=== PATIENT | male | born 1975 | race Caucasian/White ===

== ENCOUNTER 2017-01-13 14:43 | Emergency (ER) | payer SELFPAY ==
[~2017-01-13] VITALS: Ht 170.2 cm; Wt 78.3 kg
[~2017-01-13 14:43] MED LIST: GABA400 PO; IBUP-232 PO; METH750T2 PO; SERO200T PO; VIST50CA PO; ZOLO50TA PO
[2017-01-13 15:00] VITALS: BP 99/65; PULSE 92; RESP 18; TEMP 98; O2SAT 96
--- NOTE | 2017-01-13 15:05 | PD ---
HPI Chief Complaint: chest discomfort Time Seen by Provider: 15:02 Travel History International Travel<30 days: No Contact w/Intl Traveler<30days: No History of Present Illness HPI Patient presents with complaints of chest pain. States that intermittently over the last several years he experiences chest pain. Previously thought it might be associated with anxiety. 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 Mention to his employer today that he was having some chest discomfort and his employer recommended he be evaluated. Located midsternal and more of a dull ache then pressure. Positive tobacco use. Denies radiation or diaphoresis. Nondiabetic. No family history cardiac disease. No personal history of cardiac disease. Previously worked out regularly however he doesn't have time these days. PFSH Past Medical History Arthritis: Yes Anxiety: Yes Depression: Yes Heart Rhythm Problems: No Cancer: No Cardiovascular Problems: No High Cholesterol: No Chest Pain: No Congestive Heart Failure: No Cerebrovascular Accident: No Diabetes: No Diminished Hearing: No Endocrine: No Gastrointestinal Disorders: Yes GERD: No Genitourinary: No Hiatal Hernia: Yes Immune Disorder: No Musculoskeletal: Yes Neurologic: Yes Psychiatric: Yes Reproductive: No Respiratory: No Migraines: No Seizures: Yes (IN 2007) Ulcer: No Past Surgical History Abdominal Surgery: No Cardiac Surgery: No Ear Surgery: No Endocrine Surgery: No Eye Surgery: No Genitourinary Surgery: No Oral Surgery: No Thoracic Surgery: No Other Surgery: Yes Social History Alcohol Use: Yes Tobacco Use: Yes Substance Use: Yes Allergies-Medications (Allergen,Severity, Reaction): Coded Allergies: No Known Allergies (Verified , 04/15/13) Reported Meds & Prescriptions Reported Meds & Active Scripts Active No Active Prescriptions or Reported Medications Review of Systems Cardiovascular: Positive: Chest Pain or Discomfort Physical Exam Narrative GENERAL: Well-nourished, well-developed patient. SKIN: Focused skin assessment warm/dry. HEAD: Normocephalic. EYES: No scleral icterus. No injection or drainage. NECK: Supple, trachea midline. No JVD or lymphadenopathy. CARDIOVASCULAR: Regular rate and rhythm without murmurs, gallops, or rubs. RESPIRATORY: Breath sounds equal bilaterally. No accessory muscle use. GASTROINTESTINAL: Abdomen soft, non-tender, nondistended. MUSCULOSKELETAL: No cyanosis, or edema. BACK: Nontender without obvious deformity. No CVA tenderness. Data Data Last Documented VS Vital Signs Date Time Temp Pulse Resp B/P (MAP) Pulse Ox O2 Delivery O2 Flow Rate FiO2 01/13/17 15:34 98/52 (67) 97/59 (72) 01/13/17 15:31 18 98 Room Air 01/13/17 15:00 98.0 92 Orders Orders Ckmb (Isoenzyme) Profile (01/13/17 15:02) Complete Blood Count With Diff (01/13/17 15:) Comprehensive Metabolic Panel (01/13/17:) Magnesium (Mg) (01/13/17 15:) Prothrombin Time / Inr (Pt) (01/13/17:) Act Partial Throm Time (Ptt) (01/13/17:) Troponin I (01/13/17:) Chest, Single Ap (01/13/17 15:) Ecg Monitoring (01/13/17:) Bilateral Bp Monitoring (01/13/17:) Iv Access Insert/Monitor (01/13/17:) Oximetry (01/13/17 15:) Oxygen Administration (01/13/17 15:02) Aspirin (Aspirin) (01/13/17:15) Sodium Chloride 0.9% Flush (Ns Flush) (01/13/17 15:15) Labs Laboratory Tests Test 01/13/17 15:14 White Blood Count 6.9 TH/MM3 Red Blood Count 4.73 MIL/MM3 Hemoglobin 14.9 GM/DL Hematocrit 44.1 % Mean Corpuscular Volume 93.2 FL Mean Corpuscular Hemoglobin 31.6 PG Mean Corpuscular Hemoglobin Concent 33.9 % Red Cell Distribution Width 12.8 % Platelet Count 279 TH/MM3 Mean Platelet Volume 7.0 FL Neutrophils (%) (Auto) 53.5 % Lymphocytes (%) (Auto) 31.7 % Monocytes (%) (Auto) 10.3 % Eosinophils (%) (Auto) 2.0 % Basophils (%) (Auto) 2.5 % Neutrophils # (Auto) 3.7 TH/MM3 Lymphocytes # (Auto) 2.2 TH/MM3 Monocytes # (Auto) 0.7 TH/MM3 Eosinophils # (Auto) 0.1 TH/MM3 Basophils # (Auto) 0.2 TH/MM3 CBC Comment DIFF FINAL Differential Comment Prothrombin Time 10.6 SEC Prothromb Time International Ratio 1.0 RATIO Activated Partial Thromboplast Time 25.5 SEC Blood Urea Nitrogen 12 MG/DL Creatinine 0.90 MG/DL Random Glucose 94 MG/DL Total Protein 7.5 GM/DL Albumin 3.9 GM/DL Calcium Level 8.4 MG/DL Magnesium Level 2.3 MG/DL Alkaline Phosphatase 73 U/L Aspartate Amino Transf (AST/SGOT) 12 U/L Alanine Aminotransferase (ALT/SGPT) 21 U/L Total Bilirubin 0.4 MG/DL Sodium Level 139 MEQ/L Potassium Level 3.6 MEQ/L Chloride Level 103 MEQ/L Carbon Dioxide Level 28.3 MEQ/L Anion Gap 8 MEQ/L Estimat Glomerular Filtration Rate 93 ML/MIN Total Creatine Kinase 68 U/L Troponin I LESS THAN 0.02 NG/ML MDM Medical Decision Making Medical Screen Exam Complete: Yes Emergency Medical Condition: Yes Differential Diagnosis Acute coronary syndrome, anxiety, pleurisy, GERD Narrative Course Assessment and plan discussed with patient at bedside. EKG reveals sinus rhythm rate of 93. Cardiac enzymes negative. Chest x-ray shows no acute cardiopulmonary process Diagnosis Primary Impression: Chest discomfort Patient Instructions: General Instructions Additional Instructions: Encouraged regular exercise and avoidance of stressors. Encouraged smoking cessation. Follow-up with PCP. Return to emergency room with any onset of new symptoms. Please provide note to clear for work. Med/Other Pt SpecificInfo: No Meds Exist/No RX given Scripts No Active Prescriptions or Reported Meds Disposition: 01 DISCHARGE HOME Condition: Good Corey Doshi MD Jan 13, 2017 15:05
[2017-01-13] MEDS ORDERED: ASPIRIN 325 MG TAB PO ONE (15:15)
[2017-01-13] MEDS ORDERED: SODIUM CHLORIDE 0.9% FLUSH 10 ML FLUSH IVF PRN (15:15)
[2017-01-13 15:28] LABS: AUTOMATED NEUTROPHIL # 3.7 TH/MM3 (1.8-7.7); BASOPHIL # 0.2 TH/MM3 (0-0.2); BASOPHIL % 2.5 % (0.0-2.0); EOSINOPHIL # 0.1 TH/MM3 (0-0.4); HEMATOCRIT 44.1 % (39.0-51.0); HEMO FLAGS DIFF FINAL; LYMPH % 31.7 % (9.0-44.0); LYMPHOCYTE # 2.2 TH/MM3 (1.0-4.8); MEAN CELL VOLUME 93.2 FL (80.0-100.0); MEAN CORPUSCULAR HEMOGLOBIN 31.6 PG (27.0-34.0); MEAN CORPUSCULAR HGB CONC 33.9 % (32.0-36.0); MONO % 10.3 % (0.0-8.0); NEUT % 53.5 % (16.0-70.0); PLATELET COUNT 279 TH/MM3 (150-450); RED BLOOD COUNT 4.73 MIL/MM3 (4.50-5.90); RED CELL DISTRIBUTION WIDTH 12.8 % (11.6-17.2); WHITE BLOOD COUNT 6.9 TH/MM3 (4.0-11.0)
[2017-01-13 15:30] VITALS: O2SAT 98
[2017-01-13 15:34] VITALS: BP_SYST 97; BP_SYST 98; BP_DIAS 52; BP_DIAS 59
[2017-01-13 15:37] LABS: CHLORIDE 103 MEQ/L (98-107); POTASSIUM 3.6 MEQ/L (3.5-5.1); SODIUM (NA) 139 MEQ/L (136-145)
[2017-01-13 15:41] LABS: ANION GAP 8 MEQ/L (5-15); APTT (PATIENT) 25.5 SEC (24.3-30.1); BICARBONATE 28.3 MEQ/L (21.0-32.0); BLOOD UREA NITROGEN 12 MG/DL (7-18); MAGNESIUM 2.3 MG/DL (1.5-2.5); PROTHROMBIN TIME - PATIENT 10.6 SEC (9.8-11.6)
[2017-01-13 15:44] LABS: ALT (GPT) 21 U/L (12-78); AST (GOT) 12 U/L (15-37); GLOMERULAR FILTRATION RATE 93 ML/MIN (>89)
[2017-01-13 15:46] LABS: TOTAL BILIRUBIN ADULT 0.4 MG/DL (0.2-1.0)
[2017-01-13 15:47] LABS: ALKALINE PHOSPHATASE 73 U/L (45-117)
[2017-01-13 15:48] LABS: CREATINE KINASE 68 U/L (39-308)
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
[2017-01-13 16:29] VITALS: BP 105/69
--- NOTE | 2017-01-14 22:57 | EKG ---
Date Performed: 01/13/2017 Time Performed: 14:46:15 PTAGE: 41 years EKG: Sinus rhythm POSSIBLE LEFT ATRIAL ENLARGEMENT BORDERLINE ECG Compared to prior tracing no significant change DOCTOR: Wes Conley Interpretating Date/Time 01/14/2017 22:53:00
== END 2017-01-13 16:32 | disposition home or self-care (01) ==
LOC: PHED 14:43
DX: R07.89 Other chest pain (principal); F41.9 Anxiety disorder, unspecified; F32.9 Major depressive disorder, single episode, unspecified; G40.909 Epilepsy, unspecified, not intractable, without status epilepticus; F17.200 Nicotine dependence, unspecified, uncomplicated
CPT/HCPCS: 71010; 80053; 82550; 83735; 84484; 85025; 85610; 85730; 93005; 99284

== ENCOUNTER 2017-07-29 14:55 | Emergency (ER) | payer SELFPAY ==
[~2017-07-29] VITALS: Ht 172.7 cm; Wt 79.5 kg
[2017-07-29 15:22] VITALS: BP 136/89; PULSE 86; RESP 18; TEMP 98.6; O2SAT 97
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
[2017-07-29 17:56] LABS: AUTOMATED NEUTROPHIL # 3.7 TH/MM3 (1.8-7.7); BASOPHIL % 0.3 % (0.0-2.0); EOSINOPHIL # 0.1 TH/MM3 (0-0.4); EOSINOPHIL % 1.2 % (0.0-4.0); HEMATOCRIT 37.3 % (39.0-51.0); HEMOGLOBIN 13.4 GM/DL (13.0-17.0); LYMPH % 33.6 % (9.0-44.0); LYMPHOCYTE # 2.4 TH/MM3 (1.0-4.8); MEAN CORPUSCULAR HEMOGLOBIN 33.8 PG (27.0-34.0); MEAN CORPUSCULAR HGB CONC 35.9 % (32.0-36.0); MEAN PLATELET VOLUME 7.2 FL (7.0-11.0); MONO % 13.1 % (0.0-8.0); MONOCYTE # 0.9 TH/MM3 (0-0.9); NEUT % 51.8 % (16.0-70.0); PLATELET COUNT 273 TH/MM3 (150-450); RED BLOOD COUNT 3.97 MIL/MM3 (4.50-5.90); RED CELL DISTRIBUTION WIDTH 13.4 % (11.6-17.2); WHITE BLOOD COUNT 7.2 TH/MM3 (4.0-11.0)
[2017-07-29 18:26] LABS: ALBUMIN 3.4 GM/DL (3.4-5.0); AST (GOT) 15 U/L (15-37); BICARBONATE 29.4 MEQ/L (21.0-32.0); BLOOD UREA NITROGEN 16 MG/DL (7-18); CALCIUM 8.3 MG/DL (8.5-10.1); CHLORIDE 103 MEQ/L (98-107); CREATININE 0.87 MG/DL (0.60-1.30); GLOMERULAR FILTRATION RATE 97 ML/MIN (>89); GLUCOSE,RANDOM 101 MG/DL (74-106); SODIUM (NA) 141 MEQ/L (136-145)
[2017-07-29 18:27] LABS: ALT (GPT) 21 U/L (12-78)
[2017-07-29 18:30] VITALS: BP 125/77; PULSE 83; RESP 20; O2SAT 97
[2017-07-29 18:36] LABS: ALKALINE PHOSPHATASE 74 U/L (45-117); TOTAL BILIRUBIN ADULT 0.4 MG/DL (0.2-1.0); TOTAL PROTEIN 6.5 GM/DL (6.4-8.2)
[2017-07-30 02:41] VITALS: BP 93/52; PULSE 64; RESP 16; TEMP 97.9; O2SAT 98
--- NOTE | 2017-07-30 09:40 | PD ---
Physical Exam Time Seen by Provider: 09:37 Narrative EFREM Leija has evaluated the patient and cleared the patient for discharge. Data Data Last Documented VS Vital Signs Date Time Temp Pulse Resp B/P (MAP) Pulse Ox O2 Delivery O2 Flow Rate FiO2 07/30/17 02:41 97.9 64 16 93/52 (66) 98 Room Air Orders Orders Complete Blood Count With Diff (07/29/17 15:24) Comprehensive Metabolic Panel (07/29/17 15:24) Thyroid Stimulating Hormone (07/29/17 15:24) Psych Screen (07/29/17 15:24) Drug Screen, Random Urine (07/29/17 15:24) Alcohol (Ethanol) (07/29/17 15:24) Diet Regular Basic (07/29/17 Dinner) Diet Regular Basic (07/30/17 Breakfast) Labs Laboratory Tests Test 07/29/17 16:00 07/29/17 17:19 Urine Opiates Screen NEG Urine Barbiturates Screen NEG Urine Amphetamines Screen NEG Urine Benzodiazepines Screen NEG Urine Cocaine Screen POS Urine Cannabinoids Screen NEG White Blood Count 7.2 TH/MM3 Red Blood Count 3.97 MIL/MM3 Hemoglobin 13.4 GM/DL Hematocrit 37.3 % Mean Corpuscular Volume 94.0 FL Mean Corpuscular Hemoglobin 33.8 PG Mean Corpuscular Hemoglobin Concent 35.9 % Red Cell Distribution Width 13.4 % Platelet Count 273 TH/MM3 Mean Platelet Volume 7.2 FL Neutrophils (%) (Auto) 51.8 % Lymphocytes (%) (Auto) 33.6 % Monocytes (%) (Auto) 13.1 % Eosinophils (%) (Auto) 1.2 % Basophils (%) (Auto) 0.3 % Neutrophils # (Auto) 3.7 TH/MM3 Lymphocytes # (Auto) 2.4 TH/MM3 Monocytes # (Auto) 0.9 TH/MM3 Eosinophils # (Auto) 0.1 TH/MM3 Basophils # (Auto) 0.0 TH/MM3 CBC Comment DIFF FINAL Differential Comment Blood Urea Nitrogen 16 MG/DL Creatinine 0.87 MG/DL Random Glucose 101 MG/DL Total Protein 6.5 GM/DL Albumin 3.4 GM/DL Calcium Level 8.3 MG/DL Alkaline Phosphatase 74 U/L Aspartate Amino Transf (AST/SGOT) 15 U/L Alanine Aminotransferase (ALT/SGPT) 21 U/L Total Bilirubin 0.4 MG/DL Sodium Level 141 MEQ/L Potassium Level 3.9 MEQ/L Chloride Level 103 MEQ/L Carbon Dioxide Level 29.4 MEQ/L Anion Gap 9 MEQ/L Estimat Glomerular Filtration Rate 97 ML/MIN Thyroid Stimulating Hormone 3rd Gen 0.789 uIU/ML Ethyl Alcohol Level 3 MG/DL MDM Supervised Visit with ZULLY: No Narrative Course EFREM Leija has evaluated the patient and cleared the patient for discharge. Patient contracts safety. Denies suicidal or homicidal ideations. Patient will be provided community resource packet to /DAVID for follow-up. Has friends and family for support. Patient was medically cleared by alternate provider prior to psych screening. Patient has been evaluated by psychiatry and and is now cleared for discharge. Diagnosis Primary Impression: Substance induced mood disorder Referrals: DAVID (Out patient) [facility] Primary Care Physician Psychiatrist Seferino HERNANDEZ Behavioral Patient Instructions: General Instructions, Mood Disorders (ED), Polysubstance Abuse (ED) Additional Instruction: Contract safety to your self and others Follow-up with psychiatry Follow-up with primary care provider Follow-up with Kevin Herring Return to the emergency department immediately with worsening of symptoms Med/Other Pt SpecificInfo: No Change to Meds, No Meds Exist/No RX given Scripts No Active Prescriptions or Reported Meds Disposition: 01 DISCHARGE HOME Condition: Stable Kinza Grier July 30, 2017 09:40
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
== END 2017-07-30 11:17 | disposition home or self-care (01) ==
LOC: NEPJ 14:55
DX: F19.14 Other psychoactive substance abuse with psychoactive substance-induced mood disorder (principal); F17.200 Nicotine dependence, unspecified, uncomplicated
CPT/HCPCS: 80053; 80307; 84443; 85025; 99283